=== PATIENT | male | born 2000 | race Caucasian/White ===

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

== ENCOUNTER 2019-08-22 20:07 | Emergency (ER) | payer OTHER ==
[~2019-08-22] VITALS: Ht 185.4 cm; Wt 79.5 kg
[~2019-08-22 20:07] MED LIST: AZIT-12 PO; MAGICMW MT; MUCI600T37 PO; ZITHTAB PO; ZYRTTAB8 PO
[2019-08-22 20:08] VITALS: BP 138/85
[2019-08-22] MEDS ORDERED: DOXY-350 PO (20:18)
[2019-08-22] MEDS ORDERED: TETRACAINE 0.5% OPHTH SOLN 4ML OS ONE (21:30)
[2019-08-22] MEDS ORDERED: FLUORESCEIN OPHTH 1 MG STRIP OS ONE (21:30)
[2019-08-22] MEDS ORDERED: CIPR0.3S OS (21:57)
[2019-08-22] MEDS ORDERED: CIPROFLOXACIN 0.3% OPHTH OINTMENT OS ONE (22:00)
== END 2019-08-22 22:33 | disposition home or self-care (01) ==
LOC: M ED 20:07
DX: S05.02XA Injury of conjunctiva and corneal abrasion without foreign body, left eye, initial encounter (principal); W22.8XXA Striking against or struck by other objects, initial encounter; Y92.9 Unspecified place or not applicable; Y93.89 Activity, other specified; Y99.9 Unspecified external cause status; Z88.0 Allergy status to penicillin